=== PATIENT | male | born 1955 | race Caucasian/White ===

== ENCOUNTER 2022-03-21 02:07 | Inpatient (IN) ==
[2022-03-21] MEDS ORDERED: Furosemide 40 MG/4 ML VIAL IVP ONE (05:55)
[2022-03-21] MEDS ORDERED: Acetaminophen 325 MG TABLET PO PRN (06:02)
[2022-03-21] MEDS ORDERED: Naloxone 0.4 MG/ML INJ IVP PRN (06:02)
[2022-03-21] MEDS: *HR* Heparin 5,000 UNIT/ML VIAL SQ SCH ×3 (06:59→21:13)
[2022-03-21 08:30] LABS: % Iron Saturation 12 % (20-55); Iron 47 mcg/dL (65-175); Transferrin 278 mg/dL (203-362)
[2022-03-21] MEDS: cefTRIAXone 1,000 MG in 0.9 % Sodium Chloride Mini Bag 100 ML IVPB SCH (08:41)
[2022-03-21 08:49] LABS: Ferritin 262 ng/mL (20-250)
[2022-03-21 08:55] LABS: Folate 17.3 ng/mL (3.0-16.0)
[2022-03-21 09:52] LABS: Adenovirus Not Detected (Not Detect); Bordetella Pertussis Not Detected (Not Detect); Chlamydophila pneumoniae Not Detected (Not Detect); Coronavirus 229E Not Detected (Not Detect); Coronavirus HKU1 Not Detected (Not Detect); Coronavirus NL63 Not Detected (Not Detect); Coronavirus OC43 Not Detected (Not Detect); Human Metapneumovirus Not Detected (Not Detect); Human Rhinovirus/Enterovirus Not Detected (Not Detect); Influenza A Subtype 2009 H1 Not Detected (Not Detect); Influenza B Not Detected (Not Detect); Mycoplasma pneumoniae Not Detected (Not Detect); Parainfluenza Virus 1 Not Detected (Not Detect); Parainfluenza Virus 2 Not Detected (Not Detect); Parainfluenza Virus 3 Not Detected (Not Detect); Parainfluenza Virus 4 Not Detected (Not Detect); Respiratory Syncytial Virus Not Detected (Not Detect); SARS-CoV-2 Not Detected (Not Detect)
[2022-03-21] MEDS: Azithromycin 500 MG in 0.9 % Sodium Chloride 250 ML IVPB SCH (10:13)
[2022-03-21] MEDS ORDERED: Ipratropium Neb 0.5 MG NEBULIZER ONE (10:22)
[2022-03-21] MEDS: Ipratropium Neb 0.5 MG NEBULIZER IH SCH ×4 (10:23→22:39)
[2022-03-21] MEDS: Levalbuterol Neb 1.25 MG/3 ML IH SCH ×3 (10:23→19:50)
[2022-03-22] MEDS: Levalbuterol Neb 1.25 MG/3 ML IH SCH ×4 (03:55→20:10)
[2022-03-22] MEDS: Ipratropium Neb 0.5 MG NEBULIZER IH SCH ×6 (03:55→23:37)
[2022-03-22] MEDS: *HR* Heparin 5,000 UNIT/ML VIAL SQ SCH ×3 (05:52→22:37)
[2022-03-22 06:26] LABS: INR 1.3; Prothrombin Time 14.1 Seconds (9.4-12.1)
[2022-03-22 06:30] LABS: Activated Partial Thrombo Time 34.5 Seconds (26.0-36.0)
[2022-03-22 06:32] LABS: Hemoglobin 13.6 g/dL (12.9-16.9); Mean Corpuscular HGB Conc 30.9 g/dL (31.6-35.5); Mean Corpuscular Hemoglobin 29.2 pg (28.0-33.3); Mean Corpuscular Volume 94.6 fL (83.0-100.0); Mean Platelet Volume 8.9 fL (9.4-12.4); Platelet Count 337 K/mcL (140-400); Red Blood Count 4.65 M/mcL (4.19-5.50); Red Cell Distribution Width 12.6 % (11.5-14.5); White Blood Count 9.4 K/mcL (4.3-11.1)
[2022-03-22 06:35] LABS: BUN/Creatinine Ratio 28 (6-26); Blood Urea Nitrogen 22 mg/dL (8-23); Calcium 8.4 mg/dL (8.6-10.3); Carbon Dioxide 40 mEq/L (23-29); Chloride 94 mEq/L (98-107); Chol/HDL Ratio 5.2 (0-4.9); Cholesterol 194 mg/dL (< 200); Glucose 113 mg/dL (70-105); HDL Cholesterol 37 mg/dL (40-59); LDL Cholesterol,Calculated 136 mg/dL (< 100); Osmolality,Calculated 292 (280-300); Potassium 3.7 mEq/L (3.5-5.1); Sodium 139 mEq/L (136-145); Triglycerides 103 mg/dL (< 150)
[2022-03-22] MEDS ORDERED: ZINC 50 MG PO SCH (09:00)
[2022-03-22] MEDS: hydroCHLOROthiazide 25 MG TABLET PO SCH (09:10)
[2022-03-22] MEDS: Cholecalciferol (D-3) 1,000 UNIT (25MCG) TABLET PO SCH (09:10)
[2022-03-22] MEDS: cefTRIAXone 1,000 MG in 0.9 % Sodium Chloride Mini Bag 100 ML IVPB SCH (09:10)
[2022-03-22] MEDS: Lactobacillus 1 EACH CAP.SPRINK PO SCH (09:10)
[2022-03-22] MEDS: Azithromycin 500 MG in 0.9 % Sodium Chloride 250 ML IVPB SCH (09:11)
[2022-03-22 11:19] LABS: Estimated Average Glucose 134 mg/dl; Hemoglobin A1C 6.3 %
[2022-03-22] MEDS: Budesonide/Formoterol 80/4.5 1 PUFF INH IH SCH ×2 (11:30→20:10)
[2022-03-22] MEDS ORDERED: Furosemide 40 MG/4 ML VIAL IVP ONE (11:44)
[2022-03-23 03:12] LABS: Basophils % 0.3 %; Eosinophils % 0.1 %; Hematocrit 42.7 % (37.5-50.1); Hemoglobin 13.4 g/dL (12.9-16.9); Immature Granulocytes % 0.3 % (0-4); Lymphocytes # 0.8 K/mcL (0.6-4.6); Lymphocytes % 7.1 %; Mean Corpuscular HGB Conc 31.4 g/dL (31.6-35.5); Mean Corpuscular Hemoglobin 29.6 pg (28.0-33.3); Mean Corpuscular Volume 94.5 fL (83.0-100.0); Mean Platelet Volume 8.5 fL (9.4-12.4); Monocytes # 1.1 K/mcL (0.0-1.3); Monocytes % 10.4 %; Neutrophils # 8.8 K/mcL (1.6-8.9); Platelet Count 336 K/mcL (140-400); Red Blood Count 4.52 M/mcL (4.19-5.50); Red Cell Distribution Width 12.7 % (11.5-14.5); Segmented Neutrophils % 81.8 %; White Blood Count 10.8 K/mcL (4.3-11.1)
[2022-03-23 04:00] LABS: BUN/Creatinine Ratio 26 (6-26); Blood Urea Nitrogen 22 mg/dL (8-23); Carbon Dioxide 44 mEq/L (23-29); Chloride 88 mEq/L (98-107); Glucose 129 mg/dL (70-105); Magnesium 2.1 mg/dL (1.6-2.6); Osmolality,Calculated 289 (280-300); Potassium 4.1 mEq/L (3.5-5.1); Sodium 137 mEq/L (136-145)
[2022-03-23] MEDS: Ipratropium Neb 0.5 MG NEBULIZER IH SCH ×6 (04:04→23:36)
[2022-03-23] MEDS: Levalbuterol Neb 1.25 MG/3 ML IH SCH ×4 (04:04→19:51)
[2022-03-23] MEDS: *HR* Heparin 5,000 UNIT/ML VIAL SQ SCH ×3 (05:10→22:58)
[2022-03-23] MEDS: Budesonide/Formoterol 80/4.5 1 PUFF INH IH SCH ×2 (07:37→19:51)
[2022-03-23] MEDS: Lactobacillus 1 EACH CAP.SPRINK PO SCH (09:43)
[2022-03-23] MEDS: hydroCHLOROthiazide 25 MG TABLET PO SCH (09:43)
[2022-03-23] MEDS: cefTRIAXone 1,000 MG in 0.9 % Sodium Chloride Mini Bag 100 ML IVPB SCH (09:44)
[2022-03-23] MEDS: Azithromycin 500 MG in 0.9 % Sodium Chloride 250 ML IVPB SCH (09:45)
[2022-03-23] MEDS: Cholecalciferol (D-3) 1,000 UNIT (25MCG) TABLET PO SCH (09:45)
[2022-03-23] MEDS ORDERED: Furosemide 40 MG/4 ML VIAL IVP ONE (10:20)
[2022-03-23] MEDS ORDERED: Ondansetron 4 MG/2 ML VIAL ONE (13:01)
[2022-03-23] MEDS ORDERED: *HR* Propofol 200 MG/20 ML VIAL IVP ONE (13:01)
[2022-03-23] MEDS ORDERED: *HR* Succinylcholine 200 MG/10 ML VIAL IVP ONE ×2 (13:01→14:41)
[2022-03-23] MEDS ORDERED: Lidocaine -MPF 4% 5 ML AMPUL ONE (13:01)
[2022-03-23] MEDS ORDERED: EPHEDrine sulfate 50 MG/10 ML VIAL IVP ONE (13:50)
[2022-03-23] MEDS ORDERED: Albuterol 2.5 MG/3 ML NEBULIZER IH PRN (14:38)
[2022-03-24 03:00] LABS: Basophils % 0.1 %; Hematocrit 42.6 % (37.5-50.1); Hemoglobin 13.3 g/dL (12.9-16.9); Immature Granulocytes % 0.4 % (0-4); Lymphocytes # 0.3 K/mcL (0.6-4.6); Lymphocytes % 2.4 %; Mean Corpuscular HGB Conc 31.2 g/dL (31.6-35.5); Mean Corpuscular Hemoglobin 29.6 pg (28.0-33.3); Mean Corpuscular Volume 94.9 fL (83.0-100.0); Mean Platelet Volume 8.6 fL (9.4-12.4); Monocytes # 0.8 K/mcL (0.0-1.3); Monocytes % 5.6 %; Neutrophils # 12.4 K/mcL (1.6-8.9); Platelet Count 374 K/mcL (140-400); Red Blood Count 4.49 M/mcL (4.19-5.50); Red Cell Distribution Width 12.5 % (11.5-14.5); Segmented Neutrophils % 91.5 %; White Blood Count 13.6 K/mcL (4.3-11.1)
[2022-03-24 03:32] LABS: Calcium 8.9 mg/dL (8.6-10.3); Potassium 4.1 mEq/L (3.5-5.1)
[2022-03-24] MEDS: Ipratropium Neb 0.5 MG NEBULIZER IH SCH ×7 (04:16→23:10)
[2022-03-24] MEDS: Levalbuterol Neb 1.25 MG/3 ML IH SCH ×4 (04:16→21:20)
[2022-03-24] MEDS: Ondansetron 4 MG/2 ML VIAL IVP PRN (04:47)
[2022-03-24] MEDS: *HR* Heparin 5,000 UNIT/ML VIAL SQ SCH ×3 (05:58→22:23)
[2022-03-24] MEDS: hydroCHLOROthiazide 25 MG TABLET PO SCH (09:07)
[2022-03-24] MEDS: Lactobacillus 1 EACH CAP.SPRINK PO SCH (09:07)
[2022-03-24] MEDS: Cholecalciferol (D-3) 1,000 UNIT (25MCG) TABLET PO SCH (09:07)
[2022-03-24] MEDS: cefTRIAXone 1,000 MG in 0.9 % Sodium Chloride Mini Bag 100 ML IVPB SCH (09:08)
[2022-03-24] MEDS: Budesonide/Formoterol 80/4.5 1 PUFF INH IH SCH ×2 (09:49→21:20)
[2022-03-24] MEDS: Azithromycin 500 MG in 0.9 % Sodium Chloride 250 ML IVPB SCH (10:24)
[2022-03-24] MEDS ORDERED: Furosemide 40 MG/4 ML VIAL IVP ONE (11:11)
[2022-03-24 19:06] LABS: ABG Base Excess 17 mEq/L (-2 to 3); ABG HCO3 48 mEq/L (21-27); ABG Oxygen Saturation 95 % (95-98); ABG PCO2 87 mmHg (35-45); ABG PH 7.35 pH Units (7.32-7.45); ABG PO2 86 mmHg (85-104); ABG TCO2 > 50 mEq/L (20-26); Blood Gas Modality BiLevel
[2022-03-24 23:18] LABS: ABG Base Excess 19 mEq/L (-2 to 3); ABG HCO3 48 mEq/L (21-27); ABG Oxygen Saturation 95 % (95-98); ABG PCO2 74 mmHg (35-45); ABG PH 7.42 pH Units (7.32-7.45); ABG PO2 78 mmHg (85-104); ABG TCO2 > 50 mEq/L (20-26); Blood Gas Modality avaps; Blood Gas VT 500 cc
[2022-03-25] MEDS: Levalbuterol Neb 1.25 MG/3 ML IH SCH ×4 (03:29→21:15)
[2022-03-25] MEDS: Ipratropium Neb 0.5 MG NEBULIZER IH SCH ×6 (03:29→21:15)
[2022-03-25 04:41] LABS: ABG Base Excess 18 mEq/L (-2 to 3); ABG HCO3 47 mEq/L (21-27); ABG Oxygen Saturation 96 % (95-98); ABG PCO2 77 mmHg (35-45); ABG PH 7.39 pH Units (7.32-7.45); ABG PO2 85 mmHg (85-104); ABG TCO2 49 mEq/L (20-26); Blood Gas Modality avaps; Blood Gas VT 500 cc
[2022-03-25] MEDS: *HR* Heparin 5,000 UNIT/ML VIAL SQ SCH ×3 (04:51→22:29)
[2022-03-25 07:10] LABS: ABG Base Excess 16 mEq/L (-2 to 3); ABG HCO3 46 mEq/L (21-27); ABG Oxygen Saturation 97 % (95-98); ABG PCO2 75 mmHg (35-45); ABG PH 7.39 pH Units (7.32-7.45); ABG PO2 101 mmHg (85-104); ABG TCO2 48 mEq/L (20-26)
[2022-03-25 07:22] LABS: Basophils % 0.5 %; Eosinophils # 0.1 K/mcL (0.0-0.6); Eosinophils % 1.8 %; Hematocrit 40.5 % (37.5-50.1); Hemoglobin 12.7 g/dL (12.9-16.9); Immature Granulocytes % 0.3 % (0-4); Lymphocytes # 0.6 K/mcL (0.6-4.6); Mean Corpuscular HGB Conc 31.4 g/dL (31.6-35.5); Mean Corpuscular Hemoglobin 29.4 pg (28.0-33.3); Mean Corpuscular Volume 93.8 fL (83.0-100.0); Mean Platelet Volume 9.1 fL (9.4-12.4); Monocytes # 0.9 K/mcL (0.0-1.3); Monocytes % 13.4 %; Platelet Count 325 K/mcL (140-400); Red Blood Count 4.32 M/mcL (4.19-5.50); Red Cell Distribution Width 12.9 % (11.5-14.5)
[2022-03-25 07:25] LABS: White Blood Count 6.6 K/mcL (4.3-11.1)
[2022-03-25 07:46] LABS: Calcium 8.3 mg/dL (8.6-10.3); Potassium 3.7 mEq/L (3.5-5.1)
[2022-03-25] MEDS: Budesonide/Formoterol 80/4.5 1 PUFF INH IH SCH ×2 (07:54→21:16)
[2022-03-25] MEDS: cefTRIAXone 1,000 MG in 0.9 % Sodium Chloride Mini Bag 100 ML IVPB SCH (08:01)
[2022-03-25] MEDS: Lactobacillus 1 EACH CAP.SPRINK PO SCH (08:01)
[2022-03-25] MEDS: Cholecalciferol (D-3) 1,000 UNIT (25MCG) TABLET PO SCH (08:01)
[2022-03-25] MEDS: Azithromycin 500 MG in 0.9 % Sodium Chloride 250 ML IVPB SCH (10:08)
[2022-03-25] MEDS ORDERED: 0.9 % Sodium Chloride 1,000 ML IVC SCH (10:30)
[2022-03-25] MEDS: Ondansetron 4 MG/2 ML VIAL IVP PRN (12:39)
[2022-03-25] MEDS: Doxycycline 100 MG CAPSULE PO SCH (22:29)
[2022-03-26] MEDS: Levalbuterol Neb 1.25 MG/3 ML IH SCH ×4 (04:19→20:28)
[2022-03-26] MEDS: Ipratropium Neb 0.5 MG NEBULIZER IH SCH ×4 (04:19→20:28)
[2022-03-26 04:38] LABS: Hemoglobin 12.3 g/dL (12.9-16.9); Mean Corpuscular HGB Conc 31.5 g/dL (31.6-35.5); Mean Corpuscular Hemoglobin 29.6 pg (28.0-33.3); Mean Corpuscular Volume 93.8 fL (83.0-100.0); Mean Platelet Volume 8.7 fL (9.4-12.4); Platelet Count 285 K/mcL (140-400); Red Blood Count 4.16 M/mcL (4.19-5.50); Red Cell Distribution Width 12.6 % (11.5-14.5); White Blood Count 8.8 K/mcL (4.3-11.1)
[2022-03-26 05:00] LABS: BUN/Creatinine Ratio 48 (6-26); Blood Urea Nitrogen 42 mg/dL (8-23); Carbon Dioxide > 45 mEq/L (23-29); Chloride 92 mEq/L (98-107); Glucose 130 mg/dL (70-105); Osmolality,Calculated 302 (280-300); Potassium 3.6 mEq/L (3.5-5.1); Sodium 140 mEq/L (136-145)
[2022-03-26 05:26] LABS: Mixed Venous Blood pCO2 74 mmHg (44-46); Mixed Venous Blood pH 7.36 pH Units (7.34-7.36); Mixed Venous Blood pO2 45 mmHg (35-45)
[2022-03-26] MEDS: *HR* Heparin 5,000 UNIT/ML VIAL SQ SCH ×3 (06:59→21:10)
[2022-03-26] MEDS: Doxycycline 100 MG CAPSULE PO SCH ×2 (08:06→21:10)
[2022-03-26] MEDS: Cholecalciferol (D-3) 1,000 UNIT (25MCG) TABLET PO SCH (08:06)
[2022-03-26] MEDS: Furosemide 20 MG TABLET PO SCH (08:07)
[2022-03-26] MEDS: Lactobacillus 1 EACH CAP.SPRINK PO SCH (08:08)
[2022-03-26] MEDS: cefTRIAXone 1,000 MG in 0.9 % Sodium Chloride Mini Bag 100 ML IVPB SCH (08:08)
[2022-03-26] MEDS: Budesonide/Formoterol 80/4.5 1 PUFF INH IH SCH ×2 (10:44→20:28)
[2022-03-26] MEDS: Ondansetron 4 MG/2 ML VIAL IVP PRN (12:27)
[2022-03-27] MEDS: Ipratropium Neb 0.5 MG NEBULIZER IH SCH ×4 (03:45→22:56)
[2022-03-27] MEDS: Levalbuterol Neb 1.25 MG/3 ML IH SCH ×4 (03:45→22:56)
[2022-03-27] MEDS: *HR* Heparin 5,000 UNIT/ML VIAL SQ SCH ×3 (06:12→22:41)
[2022-03-27] MEDS: Doxycycline 100 MG CAPSULE PO SCH (08:21)
[2022-03-27] MEDS: Lactobacillus 1 EACH CAP.SPRINK PO SCH (08:21)
[2022-03-27] MEDS: cefTRIAXone 1,000 MG in 0.9 % Sodium Chloride Mini Bag 100 ML IVPB SCH (08:21)
[2022-03-27] MEDS: Cholecalciferol (D-3) 1,000 UNIT (25MCG) TABLET PO SCH (08:21)
[2022-03-27] MEDS: Furosemide 20 MG TABLET PO SCH (08:21)
[2022-03-27] MEDS: Budesonide/Formoterol 80/4.5 1 PUFF INH IH SCH ×2 (09:43→22:56)
[2022-03-27] MEDS ORDERED: Furosemide 40 MG in 0.9 % Sodium Chloride 50 ML IV ONE (13:48)
[2022-03-27] MEDS ORDERED: Furosemide 40 MG/4 ML VIAL IVP ONE (14:00)
[2022-03-27] MEDS: levoFLOXacin 750 MG TABLET PO SCH (14:40)
[2022-03-27] MEDS ORDERED: acetaZOLAMIDE 250 MG in Water for inj. (sterile) 2.5 ML IVP ONE (16:48)
[2022-03-28 03:43] LABS: Hematocrit 38.9 % (37.5-50.1); Hemoglobin 12.4 g/dL (12.9-16.9); Mean Corpuscular HGB Conc 31.9 g/dL (31.6-35.5); Mean Corpuscular Hemoglobin 29.1 pg (28.0-33.3); Mean Corpuscular Volume 91.3 fL (83.0-100.0); Mean Platelet Volume 8.9 fL (9.4-12.4); Platelet Count 326 K/mcL (140-400); Red Blood Count 4.26 M/mcL (4.19-5.50); Red Cell Distribution Width 12.4 % (11.5-14.5); White Blood Count 10.4 K/mcL (4.3-11.1)
[2022-03-28] MEDS: Ipratropium Neb 0.5 MG NEBULIZER IH SCH ×4 (03:52→19:48)
[2022-03-28] MEDS: Levalbuterol Neb 1.25 MG/3 ML IH SCH ×4 (03:52→19:47)
[2022-03-28 03:59] LABS: BUN/Creatinine Ratio 28 (6-26); Blood Urea Nitrogen 25 mg/dL (8-23); Calcium 8.5 mg/dL (8.6-10.3); Carbon Dioxide 39 mEq/L (23-29); Chloride 95 mEq/L (98-107); Glucose 126 mg/dL (70-105); Osmolality,Calculated 296 (280-300); Sodium 140 mEq/L (136-145)
[2022-03-28] MEDS: *HR* Heparin 5,000 UNIT/ML VIAL SQ SCH ×3 (06:29→20:38)
[2022-03-28] MEDS: Furosemide 20 MG TABLET PO SCH ×2 (08:11→17:20)
[2022-03-28] MEDS: Cholecalciferol (D-3) 1,000 UNIT (25MCG) TABLET PO SCH (08:11)
[2022-03-28] MEDS: Lactobacillus 1 EACH CAP.SPRINK PO SCH (08:11)
[2022-03-28] MEDS ORDERED: Doxycycline 100 MG CAPSULE PO SCH (09:00)
[2022-03-28] MEDS: Budesonide/Formoterol 80/4.5 1 PUFF INH IH SCH ×2 (09:18→19:46)
[2022-03-28] MEDS: levoFLOXacin 750 MG TABLET PO SCH (14:58)
[2022-03-28] MEDS ORDERED: Melatonin 3 MG TABLET PO PRN (17:28)
[2022-03-29 02:40] LABS: Hematocrit 37.9 % (37.5-50.1); Mean Corpuscular HGB Conc 31.7 g/dL (31.6-35.5); Mean Corpuscular Hemoglobin 29.1 pg (28.0-33.3); Mean Platelet Volume 9.1 fL (9.4-12.4); Platelet Count 382 K/mcL (140-400); Red Blood Count 4.12 M/mcL (4.19-5.50); Red Cell Distribution Width 12.5 % (11.5-14.5)
[2022-03-29 03:00] LABS: Calcium 8.8 mg/dL (8.6-10.3); Magnesium 1.9 mg/dL (1.6-2.6); Potassium 3.3 mEq/L (3.5-5.1)
[2022-03-29] MEDS: Levalbuterol Neb 1.25 MG/3 ML IH SCH ×3 (03:42→15:22)
[2022-03-29] MEDS: Ipratropium Neb 0.5 MG NEBULIZER IH SCH ×3 (03:42→15:22)
[2022-03-29] MEDS: *HR* Heparin 5,000 UNIT/ML VIAL SQ SCH (05:40)
[2022-03-29] MEDS: Furosemide 20 MG TABLET PO SCH (08:58)
[2022-03-29] MEDS: Lactobacillus 1 EACH CAP.SPRINK PO SCH (08:58)
[2022-03-29] MEDS: Cholecalciferol (D-3) 1,000 UNIT (25MCG) TABLET PO SCH (08:59)
[2022-03-29] MEDS: Budesonide/Formoterol 80/4.5 1 PUFF INH IH SCH (10:17)
[2022-03-29 13:26] VITALS: BP 144/84; PULSE 92; TEMP 98.3; O2SAT 97
[2022-03-30] MEDS ORDERED: levoFLOXacin 750 MG TABLET PO SCH (15:00)
== END 2022-03-29 16:08 | disposition home health service (06) | DRG 193 ==
LOC: 2ANU → SUATTDRO 05:21
PROVIDERS: ADMIT Internal Medicine; ATTEND Internal Medicine